=== PATIENT | female | born 1995 | race African-American/Black ===

== ENCOUNTER 2018-09-18 17:23 | Emergency (ER) | payer OTHER ==
[~2018-09-18] VITALS: Wt 60.0 kg
--- NOTE | 2018-09-18 17:46 | ERD ---
ER Documentation Chief Complaint Chief Complaint L LEG UPPER THIGH PAIN FROM UNKNOWN POSSIBLE TRAUMA. DENIES SA HPI 23-year-old female is brought in via EMS. The history is very convoluted. The patient admits to using drugs and alcohol over the past 24-48 hours and drinking alcohol today. She cannot articulate why she is having left posterior thigh pain. EMS reports that there was a male on the scene he states that she fell in the shower and landed on the shower head. It was described as though the shower head was lodged within the skin however EMS reports that there is no evidence of blunt or penetrating trauma. Patient is describing 8 out of 10 throbbing pain to the left thigh and posterior thigh. She denies sexual assault or vaginal pain discharge or bleeding. Patient does admit to drinking alcohol today and ca nnot clearly articulate exactly what happened. Remainder of HPI is very limited given these findings. ROS All systems reviewed and are negative except as per history of present illness. Medications Home Meds Active Scripts Ibuprofen* (Motrin*) 800 Mg Tab, 800 MG PO Q6H PRN for PAIN AND OR ELEVATED TEMP, #30 TAB Prov:LAMONT GALLAGHER MD 09/18/18 FmHx Family History: No diabetes Physical Exam Vitals Vital Signs Date Temp Pulse Resp B/P (MAP) Pulse Ox O2 O2 Flow FiO2 Time Delivery Rate 09/18/18 98.0 74 18 125/88 98 17:37 (100) Physical Exam Airway is intact Bilateral breath sounds Strong distal pulses No obvious deficits General: Uncomfortable, appears slightly intoxicated Head: Normocephalic, atraumatic Eyes: Pupils equally reactive, EOM intact ENT: Moist mucous membranes Neck: Supple, no lymphadenopathy, No midline tenderness, deformities, step-offs to the cervical spine, full active and passive range of motion without midline pain. Respiratory: Lungs clear bilaterally, no distress, no chest wall tenderness, no crepitus Cardiovascular: RRR, no murmurs, rubs, or gallops Abdominal: Soft, non-tender, non-distended, no peritoneal signs, pelvis is stable : [place] external exam reveals no evidence of bleeding or blunt trauma to the vaginal area or perineum MSK: The patient seems to have soft tissue tenderness to the medial aspect of the left mid thigh and posterior aspect of the left thigh. Compartments are soft. The patient has 2+ dorsalis pedis and posterior tibial pulses. Full range of motion of the hip and knee joints. Pelvis is stable., no unilateral swelling, 5/5 strength, no midline tenderness deformities or step-offs to the thoracolumbar spine Neurologic: Somewhat intoxicated however alert and oriented, moving all extremities, normal speech, no focal weakness, no cerebellar signs Skin: No ecchymoses or bruising to the chest or abdomen Psych: Normal mood Result Diagram: 09/18/18 1746 09/18/18 1746 Results 24 hrs Laboratory Tests Test 09/18/18 17:46 White Blood Count 7.0 10^3/ul Red Blood Count 3.89 10^6/ul Hemoglobin 12.2 g/dl Hematocrit 36.4 % Mean Corpuscular Volume 93.6 fl Mean Corpuscular Hemoglobin 31.4 pg Mean Corpuscular Hemoglobin Concent 33.5 g/dl Red Cell Distribution Width 12.8 % Platelet Count 168 10^3/UL Mean Platelet Volume 9.6 fl Immature Granulocytes % 0.400 % Neutrophils % 77.5 % Lymphocytes % 14.0 % Monocytes % 7.7 % Eosinophils % 0.0 % Basophils % 0.4 % Nucleated Red Blood Cells % 0.0 /100WBC Immature Granulocytes # 0.030 10^3/ul Neutrophils # 5.4 10^3/ul Lymphocytes # 1.0 10^3/ul Monocytes # 0.5 10^3/ul Eosinophils # 0.0 10^3/ul Basophils # 0.0 10^3/ul Nucleated Red Blood Cells # 0.0 10^3/ul Prothrombin Time 12.9 Sec Prothrombin Time Ratio 1.0 INR International Normalized Ratio 0.96 Activated Partial Thromboplast Time 25.0 Sec Sodium Level 137 mmol/L Potassium Level 3.4 mmol/L Chloride Level 100 mmol/L Carbon Dioxide Level 23 mmol/L Anion Gap 14 Blood Urea Nitrogen 10 mg/dl Creatinine 1.08 mg/dl Est Glomerular Filtrat Rate mL/min > 60 mL/min Glucose Level 117 mg/dl Calcium Level 9.1 mg/dl Total Bilirubin 0.1 mg/dl Direct Bilirubin 0.00 mg/dl Indirect Bilirubin 0.1 mg/dl Aspartate Amino Transf (AST/SGOT) 24 IU/L Alanine Aminotransferase (ALT/SGPT) 12 IU/L Alkaline Phosphatase 65 IU/L Creatine Kinase 123 IU/L Total Protein 7.8 g/dl Albumin 4.2 g/dl Globulin 3.60 g/dl Albumin/Globulin Ratio 1.16 Serum HCG, Qualitative NEGATIVE Ethyl Alcohol Level < 10.0 mg/dl Procedures/MDM EKG, MONITORS, & DIAGNOSTIC IMAGING: CT brain: IMPRESSION: NO ACUTE INTRACRANIAL BLEED NOTED. IF FURTHER WORKUP IS DESIRED, FOLLOW-UP MRI MAY BE HELPFUL. RPTAT: AAOO CT left lower extremity: IMPRESSION: Negative for evidence of acute fracture or dislocation of the left hip. RPTAT: HCTS LAB INTERPRETATION: I reviewed the laboratory testing and it shows no evidence of acute process MEDICAL DECISION MAKING: The history is extremely convoluted. The patient seems to be having pain to the left inner thigh and posterior thigh. There is no evidence of blunt or penetrating trauma to this area. Patient is intoxicated but denies any sexual assault. There is no visual evidence of blunt trauma to the vaginal area or perineum. The patient's described history does not match mechanism of trauma. Consider possible hematoma. Compartments are soft. I believe the patient would benefit from CT imaging of the head and left lower extremity to evaluate for hematoma or fracture. Total creatinine kinase will be reasonable. Further hist ory likely necessary. Assessment for intoxication with alcohol level and drug screen will be appropriate. ER COURSE: * Pain and sensorium are improved. The patient is feeling much better at this time. Diagnostic imaging is negative. Patient is ambulatory and wishing to go home. * Alcohol is negative. * This is likely a soft tissue contusion, Patient can benefit from symptom control and return precautions. CONSULTATION: None DISPOSITION PLAN: The patient does not have an identifiable emergent medical condition that warrants inpatient hospitalization at this time. The patient is deemed safe for discharge with outpatient follow-up. We discussed follow up with the patient's primary care doctor within 24 to 48 hours as needed. We also discussed return to the emergency room for worsening symptoms or worsening condition. Outpatient referral: None required Discharge Medications: Motrin Departure Diagnosis: Primary Impression: Contusion of left thigh Encounter type: initial encounter Qualified Codes: S70.12XA - Contusion of left thigh, initial encounter Additional Impression: History of substance abuse Condition: LAMNOT Connell MD Sep 18, 2018 17:46
[2018-09-18] MEDS ORDERED: IBUP800T48 PO (20:06)
[2018-09-18 20:30] VITALS: BP 121/81; PULSE 79; RESP 18
== END 2018-09-18 20:33 | disposition home or self-care (01) ==
LOC: E/R 17:23
DX: S70.12XA Contusion of left thigh, initial encounter (principal); R41.82 Altered mental status, unspecified; W18.2XXA Fall in (into) shower or empty bathtub, initial encounter; Y92.9 Unspecified place or not applicable; Z86.59 Personal history of other mental and behavioral disorders
CPT/HCPCS: 70450; 73700; 80053; 80307; 82550; 84703; 85025; 85610; 85730